=== PATIENT | male | born 1985 | race Caucasian/White ===

== ENCOUNTER 2021-05-08 06:08 | Emergency (ER) | payer SELFPAY ==
[~2021-05-08] VITALS: Ht 188 cm; Wt 129.7 kg
--- NOTE | 2021-05-08 06:13 | NUR ---
PT AAOX4. BIBSELF C/O R SIDE RIB PAIN X2 DAYS -TRAUMA NOTED. VSS. PLACED ON MONITOR AND PULSE OX.
[2021-05-08] MEDS ORDERED: MAG HYDROX/AL HYDROX/SIMETH 30 ML UDC ONE (07:14)
[2021-05-08] MEDS ORDERED: KETOROLAC TROMETHAMINE 15 MG/ML VIAL ONE (07:14)
[2021-05-08] MEDS ORDERED: LIDOCAINE VISCOUS 2% UD 15 ML UDC ONE (07:14)
[2021-05-08 07:17] LABS: BASOPHILS # (AUTO) 0.1 /CMM (0.0-0.2); EOSINOPHILS % (AUTO) 2.3 % (0.0-6.0); HEMATOCRIT 44 % (39-51); HEMOGLOBIN 14.9 g/dL (13.5-17.5); LYMPHOCYTES # (AUTO) 1.8 /CMM (0.8-4.8); LYMPHOCYTES % (AUTO) 22.6 % (20.0-44.0); MEAN CORPUSCULAR HGB CONC 34 g/dl (31.0-36.0); MEAN CORPUSCULAR VOLUME 91 fL (80-96); MONOCYTES # (AUTO) 0.8 /CMM (0.1-1.30); MONOCYTES % (AUTO) 10.4 % (2.0-12.0); NEUTROPHILS # (AUTO) 5.1 /CMM (1.8-8.9); NEUTROPHILS % (AUTO) 63.7 % (43.0-81.0); PLATELET COUNT (AUTO) 317 /CMM (150-450); RED BLOOD CELL COUNT(AUTO) 4.83 MIL/uL (4.5-6.0)
[2021-05-08] MEDS ORDERED: LIDOCAINE VISCOUS 2% UD 15 ML UDC MM ONE (07:30)
[2021-05-08] MEDS ORDERED: MAG HYDROX/AL HYDROX/SIMETH 30 ML UDC PO ONE (07:30)
[2021-05-08] MEDS ORDERED: KETOROLAC TROMETHAMINE INJ 30 MG/ML VIAL IM ONE (07:30)
[2021-05-08 07:34] LABS: CALCIUM, SERUM 8.8 mg/dL (8.5-10.1); CREATININE 1.1 mg/dL (0.6-1.3); POTASSIUM 4.2 mmol/L (3.5-5.1)
[2021-05-08 07:41] LABS: ALBUMIN 3.8 g/dL (3.4-5.0); BILIRUBIN,DIRECT 0.2 mg/dL (0.0-0.2); BILIRUBIN,TOTAL 0.9 mg/dL (0.2-1.0); TOTAL PROTEIN, SERUM 7.4 g/dL (6.4-8.2)
--- NOTE | 2021-05-08 08:16 | NUR ---
The patient is alert and oriented x4. Denies pain. In room air and denies SOB. Respriation regular and unlabored. Patient discharged to home in stable condition. Written and verbal after care instructions given. Patient verbalizes understanding of instruction.
[2021-05-08 08:17] VITALS: BP 133/76
== END 2021-05-08 08:17 | disposition home or self-care (01) ==
LOC: ER 06:12
DX: R07.81 Pleurodynia (principal)
CPT/HCPCS: 36415; 71045; 80048; 80076; 85025; 85378; 96372; 99284; J1885

== ENCOUNTER 2021-06-17 11:26 | Emergency (ER) | payer SELFPAY ==
[~2021-06-17] VITALS: Ht 190.5 cm; Wt 129.3 kg
--- NOTE | 2021-06-17 11:36 | NUR ---
Epigastroc pain x 2 days - report given to the primary care nurse
--- NOTE | 2021-06-17 11:41 | NUR ---
35 years old male alert, oriented x4 presents to er c/o left upper quadrant sharp pain time 2 days radiate to back denies nausea vomiting diarrhea, constipation.
--- NOTE | 2021-06-17 11:48 | NUR ---
urine collected/sent.
[2021-06-17 11:59] LABS: BASOPHILS # (AUTO) 0.1 K/uL (0.0-0.2); HEMATOCRIT 47 % (39-51); HEMOGLOBIN 15.8 g/dL (13.5-17.5); LYMPHOCYTES # (AUTO) 1.6 K/uL (0.8-4.8); LYMPHOCYTES % (AUTO) 24.2 % (20.0-44.0); MEAN CORPUSCULAR HGB CONC 34 g/dl (31.0-36.0); MEAN CORPUSCULAR VOLUME 91 fL (80-96); MONOCYTES # (AUTO) 0.5 K/uL (0.1-1.30); MONOCYTES % (AUTO) 7.8 % (2.0-12.0); NEUTROPHILS # (AUTO) 4.4 K/uL (1.8-8.9); PLATELET COUNT (AUTO) 317 K/uL (150-450); RED BLOOD CELL COUNT(AUTO) 5.15 MIL/uL (4.5-6.0); WHITE BLOOD COUNT (AUTO) 6.6 K/uL (4.3-11.0)
[2021-06-17 12:15] LABS: CREATININE 1.3 mg/dL (0.6-1.3); POTASSIUM 3.9 mmol/L (3.5-5.1)
[2021-06-17 12:17] LABS: BILIRUBIN,URINE Negative (NEGATIVE); COLOR,URINE YELLOW (YELLOW); LEUKOCYTE ESTERASE ,URINE Negative (NEGATIVE); NITRITE, URINE Negative (NEGATIVE); PH,URINE 8.5 (5.0-8.0); PROTEIN,URINE Negative (NEGATIVE); UGLUCOSE Negative (NEGATIVE); UROBILINOGEN,URINE 0.2 EU/dL (0.2)
[2021-06-17 12:21] LABS: BILIRUBIN,DIRECT 0.2 mg/dL (0.0-0.2); BILIRUBIN,TOTAL 0.9 mg/dL (0.2-1.0); TOTAL PROTEIN, SERUM 7.8 g/dL (6.4-8.2)
[2021-06-17 12:40] LABS: ALBUMIN 3.8 g/dL (3.4-5.0)
--- NOTE | 2021-06-17 12:49 | NUR ---
patient returns from ct no acute changes noted awaiting for result.
--- NOTE | 2021-06-17 13:09 | NUR ---
patient reassess, re-evaluated by ER Provider condition stable d/c home with instructions after care reviewed understood left er via self ambulatory with steady gait no pain, nausea, vomiting.
[2021-06-17 13:10] VITALS: BP 128/70
== END 2021-06-17 13:11 | disposition home or self-care (01) ==
LOC: ER 11:26
DX: R10.13 Epigastric pain (principal)
CPT/HCPCS: 36415; 80048-TC; 80076-TC; 83690-TC; 85025-TC

== ENCOUNTER 2022-12-17 11:28 | Emergency (ER) | payer SELFPAY ==
[~2022-12-17] VITALS: Ht 190.5 cm; Wt 136.1 kg
[2022-12-17] MEDS ORDERED: NAPR-1164 PO (14:01)
[2022-12-17] MEDS ORDERED: CYCL10TA9 PO (14:01)
[2022-12-17 14:17] VITALS: BP 118/68
== END 2022-12-17 14:17 | disposition home or self-care (01) ==
LOC: ER 11:31
DX: S16.1XXA Strain of muscle, fascia and tendon at neck level, initial encounter (principal); S00.83XA Contusion of other part of head, initial encounter; W22.01XA Walked into wall, initial encounter; Y93.89 Activity, other specified; Y92.89 Other specified places as the place of occurrence of the external cause; Y99.8 Other external cause status
CPT/HCPCS: 70450-TC; 72125-TC

== ENCOUNTER 2024-03-16 13:11 | Emergency (ER) | payer SELFPAY ==
[~2024-03-16] VITALS: Ht 188 cm; Wt 136.5 kg
[~2024-03-16 13:11] MED LIST: CYCL10TA9 PO; NAPR-1164 PO
[2024-03-16 13:25] VITALS: BP 151/87; TEMP 98.4; O2SAT 100
[2024-03-16 14:56] LABS: CALCIUM, SERUM 8.9 mg/dL (8.5-10.1)
[2024-03-16 15:00] LABS: MAGNESIUM 1.7 mg/dL (1.8-2.4); PHOSPHORUS 2.9 mg/dL (2.5-4.9)
[2024-03-16 15:03] LABS: ALBUMIN 3.5 g/dL (3.4-5.0); BILIRUBIN,DIRECT 0.1 mg/dL (0.0-0.2); BILIRUBIN,TOTAL 0.5 mg/dL (0.2-1.0); TOTAL PROTEIN, SERUM 7.5 g/dL (6.4-8.2)
[2024-03-16 15:24] LABS: THYROID STIMULATING HORMONE 1.063 uIU/mL (0.358-3.74)
[2024-03-16 15:36] LABS: BASOPHILS # (AUTO) 0.1 K/uL (0.0-0.2); BASOPHILS % (AUTO) 0.9 % (0.0-2.0); EOSINOPHILS # (AUTO) 0.2 K/uL (0.0-0.7); EOSINOPHILS % (AUTO) 2.8 % (0.0-6.0); HEMATOCRIT 45 % (39-51); HEMOGLOBIN 14.9 g/dL (13.5-17.5); MEAN CORPUSCULAR HEMOGLOBIN 30 PG (26.0-33.0); MEAN CORPUSCULAR HGB CONC 33 g/dl (31.0-36.0); MEAN CORPUSCULAR VOLUME 90 fL (80-96); MONOCYTES # (AUTO) 0.8 K/uL (0.1-1.30); NEUTROPHILS # (AUTO) 4.1 K/uL (1.8-8.9); NEUTROPHILS % (AUTO) 57.3 % (43.0-81.0); PLATELET COUNT (AUTO) 335 K/uL (150-450); RED BLOOD CELL COUNT(AUTO) 5.03 MIL/uL (4.5-6.0); RED CELL DISTRIBUTION WIDTH 14.7 % (11.5-15.0); WHITE BLOOD COUNT (AUTO) 7.2 K/uL (4.3-11.0)
== END 2024-03-16 16:22 | disposition home or self-care (01) ==
LOC: ER 13:27
DX: R53.83 Other fatigue (principal); E83.42 Hypomagnesemia; Z79.899 Other long term (current) drug therapy
CPT/HCPCS: 36415; 71045-TC; 80048-TC; 80076-TC; 82962-TC; 83735-TC; 84100-TC; 84443-TC; 85025-TC

== ENCOUNTER 2024-11-09 12:55 | Emergency (ER) | payer MEDICAID ==
[~2024-11-09] VITALS: Ht 190.5 cm; Wt 131.5 kg
[2024-11-09 13:08] VITALS: BP 129/89; TEMP 98.4
[2024-11-09] MEDS ORDERED: CEFTRIAXONE 500 MG VIAL ONE (13:19)
[2024-11-09] MEDS ORDERED: LIDOCAINE /MPF 1% VIAL 5 ML VIAL ONE (13:19)
[2024-11-09] MEDS: CEFTRIAXONE 1 G VIAL IM ONE (13:30)
[2024-11-09] MEDS ORDERED: DOXY100C2 PO (13:44)
[2024-11-09] MEDS ORDERED: CLOT15CR27 TP (13:44)
[2024-11-09] MEDS ORDERED: MUPI1OIN5 TP (13:44)
[2024-11-09 14:21] LABS: APPEARANCE,URINE CLEAR (CLEAR); BILIRUBIN,URINE NEGATIVE (NEGATIVE); BLOOD, URINE TRACE-INTA Ery/uL (NEGATIVE); COLOR,URINE YELLOW (YELLOW); KETONES,URINE NEGATIVE (NEGATIVE); LEUKOCYTE ESTERASE ,URINE NEGATIVE (NEGATIVE); NITRITE, URINE NEGATIVE (NEGATIVE); PROTEIN,URINE NEGATIVE (NEGATIVE); UGLUCOSE NEGATIVE (NEGATIVE); UROBILINOGEN,URINE 0.2 EU/dL (0.2)
[2024-11-09 14:34] LABS: ADD URINE CULTURE NO; BACTERIA,URINE Rare /HPF (None Seen); MUCUS,URINE Few /LPF (None Seen); RBC,URINE 0-2 /HPF (0-2); SQUAMOUS EPITHELIAL CELL,UR None Seen /HPF (None Seen); WBC,URINE 0-2 /HPF (0-3)
[2024-11-09 16:41] VITALS: O2SAT 98
[2024-11-10 14:06] LABS: CHLAMYDIA TRACHOMATIS NAA Negative (Negative); NEISSERIA GONORRHOEAE NAA Negative (Negative)
== END 2024-11-09 16:42 | disposition home or self-care (01) ==
LOC: ER 12:58
DX: N48.1 Balanitis (principal); Z11.3 Encounter for screening for infections with a predominantly sexual mode of transmission
CPT/HCPCS: 99283; 96372; 81001; 87491; 87591; J0696; J3490